=== PATIENT | male | born 1975 | race Caucasian/White ===

== ENCOUNTER 2018-01-12 15:03 | Emergency (ER) | payer OTHER ==
[~2018-01-12] VITALS: Ht 182.9 cm; Wt 93.6 kg
[~2018-01-12 15:03] MED LIST: BACT PO; BACT2OIN TOP; DOXY100T PO; MOTR200T PO; SULF1TAB47 PO; [UNRECOGNIZED DRUG - OTHER]
[2018-01-12 15:24] VITALS: BP 184/124; PULSE 115; RESP 18; TEMP 99.1; O2SAT 97
[2018-01-12] MEDS ORDERED: SODIUM CHLOR 0.9% 1000 ML INJ 1,000 ML IV SCH (16:42)
[2018-01-12] MEDS ORDERED: CLINDAMYCIN 900 MG/NS PREMIX 50 ML IV ONE (16:45)
[2018-01-12] MEDS ORDERED: SODIUM CHLORIDE 0.9% FLUSH 10 ML FLUSH IV FLUSH PRN (16:45)
--- NOTE | 2018-01-12 16:49 | PD ---
HPI Chief Complaint: Oral / Dental Pain or Problem Time Seen by Provider: 16:37 Travel History International Travel<30 days: No Contact w/Intl Traveler<30days: No Traveled to known affect area: No History of Present Illness HPI 42-year-old male here for evaluation of sinus pressure and possible abscess on the roof of his mouth. The patient reports that 2 days ago he began to notice maxillary sinus pressure with some nasal drainage. He has been taking over-the- counter decongestants as well as attempted nasal/sinus flushes. He reports fevers. He states that today he noticed a bump on the roof of his mouth and believes it to be an abscess. It has not been draining. Maxillary sinus pressure is moderate. He also complains of discomfort in his teeth. No visual changes. No throat pain or difficulty swallowing. No cough. No IVDU. No tobacco use. PFSH Past Medical History Diminished Hearing: No Past Surgical History Appendectomy: Yes (94) Genitourinary Surgery: Yes (mult surgeries l testicle last 08/23) Social History Alcohol Use: Yes (1-2 per mon) Tobacco Use: No Substance Use: No Allergies-Medications (Allergen,Severity, Reaction): Coded Allergies: No Known Allergies (Verified Adverse Reaction, Unknown, 01/12/18) Reported Meds & Prescriptions Reported Meds & Active Scripts Active Reported [testam] DAILY Review of Systems Except as stated in HPI: all other systems reviewed are Neg Physical Exam Narrative GENERAL: Well-developed, well-nourished, awake, alert, no apparent distress. SKIN: Focused skin assessment warm/dry. HEAD: Atraumatic. Normocephalic. EYES: Pupils equal, round, 3 mm, reactive to light. EOMI. No scleral icterus. No injection or drainage. ENT: Mucous membranes pink and moist. Normal-appearing pharynx without exudates. Normal phonation. No drooling or stridor. On the anterior hard palate in the midline there is a small nodular mass. NECK: Trachea midline. No JVD. No nuchal rigidity. CARDIOVASCULAR: Regular rate and rhythm. RESPIRATORY: No accessory muscle use. Clear to auscultation. Breath sounds equal bilaterally. GASTROINTESTINAL: Abdomen soft, non-tender, nondistended. MUSCULOSKELETAL: No obvious deformities. No clubbing. No cyanosis. No edema. NEUROLOGICAL: Awake and alert. No obvious cranial nerve deficits. Motor grossly within normal limits. Normal speech. PSYCHIATRIC: Appropriate mood and affect; insight and judgment normal. Data Data Last Documented VS Vital Signs Date Time Temp Pulse Resp B/P (MAP) Pulse Ox O2 Delivery O2 Flow Rate FiO2 01/12/18 15:24 99.1 115 18 184/124 (144) 97 Orders Orders Complete Blood Count With Diff (01/12/18 16:42) Comprehensive Metabolic Panel (01/12/18 16:42) Prothrombin Time / Inr (Pt) (01/12/18 16:42) Act Partial Throm Time (Ptt) (01/12/18 16:42) Iv Access Insert/Monitor (01/12/18 16:42) Ecg Monitoring (01/12/18 16:42) Oximetry (01/12/18 16:42) Sodium Chlor 0.9% 1000 Ml Inj (Ns 1000 M (01/12/18 16:42) Sodium Chloride 0.9% Flush (Ns Flush) (01/12/18 16:45) Clindamycin 900 Mg/Ns Premix (Cleocin 90 (01/12/18 16:45) Influenzae A/B Antigen (01/12/18 16:42) Group A Rapid Strep Screen (01/12/18 16:42) Ct Facial Bones W Iv Contrast (01/12/18 ) Iohexol 350 Inj (Omnipaque 350 Inj) (01/12/18 17:26) Strep Culture (Group A) (01/12/18 16:58) Ketorolac Inj (Toradol Inj) (01/12/18 18:30) Morphine Inj (Morphine Inj) (01/12/18 18:30) Labs Laboratory Tests Test 01/12/18 17:05 White Blood Count 14.4 TH/MM3 Red Blood Count 5.76 MIL/MM3 Hemoglobin 17.6 GM/DL Hematocrit 52.7 % Mean Corpuscular Volume 91.5 FL Mean Corpuscular Hemoglobin 30.5 PG Mean Corpuscular Hemoglobin Concent 33.3 % Red Cell Distribution Width 12.9 % Platelet Count 297 TH/MM3 Mean Platelet Volume 7.7 FL CBC Comment AUTO DIFF Differential Total Cells Counted 100 Neutrophils % (Manual) 75 % Band Neutrophils % 5 % Lymphocytes % 10 % Monocytes % 10 % Neutrophils # (Manual) 11.5 TH/MM3 Differential Comment FINAL DIFF MANUAL Platelet Estimate NORMAL Platelet Morphology Comment NORMAL Prothrombin Time 10.1 SEC Prothromb Time International Ratio 1.0 RATIO Activated Partial Thromboplast Time 29.0 SEC Blood Urea Nitrogen 7 MG/DL Creatinine 1.10 MG/DL Random Glucose 103 MG/DL Total Protein 9.2 GM/DL Albumin 4.3 GM/DL Calcium Level 9.0 MG/DL Alkaline Phosphatase 69 U/L Aspartate Amino Transf (AST/SGOT) 39 U/L Alanine Aminotransferase (ALT/SGPT) 70 U/L Total Bilirubin 1.4 MG/DL Sodium Level 137 MEQ/L Potassium Level 4.1 MEQ/L Chloride Level 104 MEQ/L Carbon Dioxide Level 24.7 MEQ/L Anion Gap 8 MEQ/L Estimat Glomerular Filtration Rate 73 ML/MIN [facility] Medical Decision Making Medical Screen Exam Complete: Yes Emergency Medical Condition: Yes Differential Diagnosis Sinusitis, dental abscess, cavernous sinus thrombosis less likely, oral cancer Narrative Course Initial vital signs show heart rate 115, blood pressure 184/124, pulse ox 97% on room air, oral temp of 99.1F. CBC: WBC 14.4, hemoglobin 17.6, hematocrit 52.7, platelets 297, neutrophils 75% , band neutrophils 5%. CMP is essentially unremarkable. Influenza negative. Group A strep is negative. CT facial bones with contrast: CONCLUSION: 1. Negative CT scan of the facial bones. There is no evidence of abscess. I discussed the CT findings with reading radiologist Dr. Landry who reports that there is no evidence for cavernous sinus thrombosis on CT scan. Patient was given a dose of Toradol and morphine and feels improved. All findings were discussed with him and the plan at this point is to start him on clindamycin and have him follow-up with an ENT physician as well as a dentist this week. Blood pressure slightly improved after pain control. He is not displaying any signs or symptoms of hypertensive crisis. He was advised on when to return to the emergency department. He verbalizes understanding and agreement with plan. Diagnosis Primary Impression: Dental infection Referrals: Brian Almaguer MD 3 days ENT Dentist 3 days Primary Care Physician 3 days Additional Instructions: Follow-up with a primary care physician this week. Follow-up with ENT Dr. Almaguer or an ENT physician of your choice this week. Follow-up with a dentist this week. Return to the emergency department for worsening symptoms or any other concerns. Scripts Hydrocodone-Acetaminophen (Hydrocodone-Acetaminophen) 5-325 mg Tab 1 TAB PO Q6H Y for PAIN, #15 TAB 0 Refills Prov: Erik Owusu MD 01/12/18 Clindamycin (Clindamycin) 150 Mg Cap 450 MG PO Q6H for Infection for 10 Days, #120 CAP 0 Refills Prov: Erik Owusu MD 01/12/18 Disposition: 01 DISCHARGE HOME Condition: Stable Erik Owusu MD Jan 12, 2018 16:48
[2018-01-12 17:15] VITALS: RESP 18; O2SAT 97
[2018-01-12 17:18] LABS: HEMATOCRIT 52.7 % (39.0-51.0); HEMOGLOBIN 17.6 GM/DL (13.0-17.0); MEAN CELL VOLUME 91.5 FL (80.0-100.0); MEAN CORPUSCULAR HEMOGLOBIN 30.5 PG (27.0-34.0); MEAN CORPUSCULAR HGB CONC 33.3 % (32.0-36.0); MEAN PLATELET VOLUME 7.7 FL (7.0-11.0); PLATELET COUNT 297 TH/MM3 (150-450); RED BLOOD COUNT 5.76 MIL/MM3 (4.50-5.90); RED CELL DISTRIBUTION WIDTH 12.9 % (11.6-17.2); WHITE BLOOD COUNT 14.4 TH/MM3 (4.0-11.0)
[2018-01-12] MEDS ORDERED: IOHEXOL 350 MG/ML 10 ML VIAL (for RAD DIAG) IVCONTRAST ONE (17:26)
[2018-01-12 17:30] LABS: CHLORIDE 104 MEQ/L (98-107); PROTHROMBIN TIME - PATIENT 10.1 SEC (9.8-11.6); SODIUM (NA) 137 MEQ/L (136-145)
[2018-01-12 17:33] LABS: ALBUMIN 4.3 GM/DL (3.4-5.0); BICARBONATE 24.7 MEQ/L (21.0-32.0); BLOOD UREA NITROGEN 7 MG/DL (7-18); GLUCOSE,RANDOM 103 MG/DL (74-106)
[2018-01-12 17:36] LABS: ALT (GPT) 70 U/L (12-78); AST (GOT) 39 U/L (15-37); GLOMERULAR FILTRATION RATE 73 ML/MIN (>89)
[2018-01-12 17:37] LABS: TOTAL BILIRUBIN ADULT 1.4 MG/DL (0.2-1.0); TOTAL PROTEIN 9.2 GM/DL (6.4-8.2)
[2018-01-12 17:39] LABS: ALKALINE PHOSPHATASE 69 U/L (45-117)
--- NOTE | 2018-01-12 17:39 | RADRPT ---
EXAM DATE/TIME: 01/12/2018 17:21 [facility] COMPARISON: No previous studies available for comparison. INDICATIONS : Swelling in roof of mouth. Evaluate for abscess. IV CONTRAST: 95 cc Omnipaque 350 (iohexol) IV RADIATION DOSE: 29.94 CTDIvol (mGy) MEDICAL HISTORY : None SURGICAL HISTORY : Appendectomy. ENCOUNTER: Initial ACUITY: 2 days PAIN SCALE: 4/10 LOCATION: facial TECHNIQUE: Volumetric scanning of the facial bones was performed. Using automated exposure control and adjustme nt of the mA and/or kV according to patient size, radiation dose was kept as low as reasonably achiev able to obtain optimal diagnostic quality images. DICOM format image data is available electronicall y for review and comparison. FINDINGS: ORBITS: The orbital and infraorbital osseous structures are intact. The retroconal structures have a normal configuration. No radiopaque foreign bodies are seen. A cavum septum pellucidum er vergae a is prese nt. NASAL BONE: The nasal bone and maxillary spine are intact ZYGOMATIC ARCHES: Symmetric without evidence of fracture. SINUSES: The maxillary, ethmoid and frontal sinuses are intact. No air-fluid levels seen. NASAL CAVITY: The nasal septum is intact and midline. The lacrimal ducts are intact. SOFT TISSUES: No radiopaque foreign bodies seen. No soft-tissue swelling is seen. There is no evidence of abscess. There nonspecific slightly enlarged group 2 nodes bilaterally. INTRACRANIAL: No intracranial air seen. CRIBIFORM PLATE: Grossly intact. CONCLUSION: 1. Negative CT scan of the facial bones. There is no evidence of abscess. Warren Landry MD on January 12, 2018 at 17:34 Board Certified Radiologist. This report was verified electronically.
[2018-01-12 17:50] LABS: BANDS 5 % (0-6); LYMPHOCYTES 10 % (9-44); MONOCYTES 10 % (0-8); NEUTROPHIL # MANUAL DIFF 11.5 TH/MM3 (1.8-7.7); POLYS (SEG NEUTROPHILS) 75 % (16-70)
[2018-01-12] MEDS ORDERED: MORPHINE SULFATE 2 MG/ML INJ IV PUSH ONE (18:30)
[2018-01-12] MEDS ORDERED: KETOROLAC TROMETHAMINE 30 MG/ML (IVP) VIAL IV PUSH ONE (18:30)
[2018-01-12] MEDS ORDERED: HYDR-3516 PO (19:02)
[2018-01-12] MEDS ORDERED: CLIN150C14 PO (19:02)
[2018-01-12 19:21] VITALS: BP 160/92; PULSE 84; RESP 18; O2SAT 97
== END 2018-01-12 19:23 | disposition home or self-care (01) ==
LOC: PHED 15:03
DX: K04.7 Periapical abscess without sinus (principal)
CPT/HCPCS: 70487; 80053; 85007; 85027; 85610; 85730; 87081; 87804; 87880; 96365; 96375; 99284; J1885; J2270; J7030; Q9967